=== PATIENT | male | born 1970 | race Caucasian/White ===

== ENCOUNTER 2021-09-12 07:49 | Outpatient (REF) | payer OTHER, SELFPAY ==
[2021-09-12 11:06] LABS: Hematocrit 44.3 % (42-52); Hemoglobin 14.8 g/dl (14.0-18.0); Mean Corpuscular HGB Conc 33.4 g/dl (31.0-36.0); Mean Corpuscular Hemoglobin 30.3 pg (27.0-33.0); Mean Corpuscular Volume 90.8 fL (80-98); Mean Platelet Volume 11.8 fL (9.4-12.4); Platelet Count 189 X10*3/uL (160-400); Red Blood Count 4.88 X10*6/uL (4.60-5.80); Red Cell Distribution Width 12.7 % (11.0-16.0); White Blood Count 7.5 X10*3/uL (4.8-10.8)
[2021-09-12 11:16] LABS: Estimated Average Glucose 117 mg/dL; Hemoglobin A1c % 5.7 %
[2021-09-12 11:52] LABS: Prostate Specific Antigen 1.13 ng/mL (<0.05-4.0)
[2021-09-12 11:56] LABS: Alanine Aminotransferase 26 U/L (0-40); Albumin Level 4.6 g/dL (3.5-5.0); Alkaline Phosphatase 60 U/L (39-117); Anion Gap 12 (12-20); Aspartate Amino Transferase 21 U/L (5-37); Bilirubin Total 0.5 mg/dL (0.0-1.0); Blood Urea Nitrogen 11 mg/dL (9-16); Carbon Dioxide 25 mmol/L (22-29); Chloride 105 mmol/L (96-108); Cholesterol 161 mg/dL; Estimated Glomerular Filt Rate > 60; Glucose Fasting 115 mg/dL (60-99); HDL Cholesterol 45 mg/dL; LDL Cholesterol Calculated 96 mg/dl; Potassium 4.2 mmol/L (3.3-5.1); Sodium 138 mmol/L (135-145); Total Protein 7.1 g/dL (6.5-8.0); Triglycerides 101 mg/dL
== END 2021-09-12 07:50 | disposition home or self-care (01) ==
LOC: HO.MANLDS 07:49
PROVIDERS: PCP Internal Medicine; Visit Provider Internal Medicine
DX: Z12.5 Encounter for screening for malignant neoplasm of prostate (principal); R73.01 Impaired fasting glucose; I10 Essential (primary) hypertension
CPT/HCPCS: 36415; 80053; 80061; 83036; 84153; 85027

== ENCOUNTER 2023-06-10 08:09 | Outpatient (REF) | payer OTHER, SELFPAY ==
[2023-06-10 13:27] LABS: MANUAL DIFF FLAG NO
[2023-06-10 13:52] LABS: Basophils Absolute Auto 0.1 X10*3/uL (0.0-0.2); Basophils Percent Auto 0.8 % (0-2); Eosinophils Absolute Auto 0.1 X10*3/uL (0.0-0.4); Eosinophils Percent Auto 1.8 % (0-4); Hematocrit 45.8 % (42.0-52.0); Hemoglobin 14.9 g/dl (14.0-18.0); Imm Gran Abs Auto 0.04 X10*3/uL (0.00-0.03); Imm Gran Pct Auto 0.6 % (0.0-0.4); Lymphocytes Absolute Auto 1.9 X10*3/uL (1.2-4.9); Mean Corpuscular HGB Conc 32.5 g/dl (31.0-36.0); Mean Corpuscular Hemoglobin 29.6 pg (27.0-33.0); Mean Corpuscular Volume 90.9 fL (80.0-98.0); Mean Platelet Volume 11.5 fL (9.4-12.4); Monocytes Absolute Auto 0.7 X10*3/uL (0.1-1.2); Monocytes Percent Auto 9.3 % (2-11); Neutrophils Absolute Auto 4.5 x10*3/uL (2.0-8.3); Neutrophils Percent Auto 61.5 % (45-73); Platelet Count 187 X10*3/uL (160-400); Red Blood Count 5.04 X10*6/uL (4.60-5.80); Red Cell Distribution Width 12.9 % (11.0-16.0); White Blood Count 7.2 X10*3/uL (4.8-10.8)
[2023-06-10 14:05] LABS: Alanine Aminotransferase 40 U/L (0-40); Albumin Level 4.5 g/dL (3.5-5.0); Alkaline Phosphatase 60 U/L (39-117); Anion Gap 12 (12-20); Aspartate Amino Transferase 25 U/L (5-37); Bilirubin Total 0.6 mg/dL (0.0-1.0); Blood Urea Nitrogen 12 mg/dL (9-16); Calcium 10.1 mg/dL (8.4-10.2); Carbon Dioxide 27 mmol/L (22-29); Chloride 106 mmol/L (96-108); Cholesterol 172 mg/dL; Estimated Glomerular Filt Rate > 60; Glucose Random 104 mg/dL (60-115); HDL Cholesterol 41 mg/dL; LDL Cholesterol Calculated 100 mg/dl; Potassium 4.2 mmol/L (3.3-5.1); Sodium 141 mmol/L (135-145); Total Protein 7.4 g/dL (6.5-8.0); Triglycerides 157 mg/dL
[2023-06-10 14:13] LABS: Estimated Average Glucose 114 mg/dL; Hemoglobin A1c % 5.6 %
[2023-06-10 14:39] LABS: Prostate Specific Antigen 1.21 ng/mL (<0.05-4.0)
== END 2023-06-10 08:10 | disposition home or self-care (01) ==
LOC: HO.MANLDS 08:09
PROVIDERS: Visit Provider Internal Medicine
DX: Z12.5 Encounter for screening for malignant neoplasm of prostate (principal); E78.2 Mixed hyperlipidemia; R73.01 Impaired fasting glucose
CPT/HCPCS: 36415; 80053; 80061; 83036; 84153; 85025

== ENCOUNTER 2025-04-02 09:35 | Outpatient (REF) | payer OTHER, SELFPAY ==
--- OUTSIDE RECORDS SUMMARY | 2025-04-02 09:52 | XMS_ITS | Data Portability ---
Author Organization [facility] Home Service Address [address] [place] [address] Assessment Encounter Date Assessment Date Assessment LastModified by Organization Details LastModified Time 09/19/2022 09/19/2022 [id number] [place] [id number] (I&C TECHNICIAN) [facility] MODERATE MUST MEET 2 OUT OF 3 ELEMENTS: PROBLEMS, DATA OR RISK ELEMENT 1: PROBLEMS ADDRESSED 1 OR MORE CHRONIC ILLNESS WITH EXACERBATION OR 2 OR MORE STABLE CHRONIC ILLNESSES OR 1 UNDIAGNOSED NEW PROBLEM OR 1 ACUTE ILLNESS W/SYMPTOMS OR 1 ACUTE COMPLICATED INJURY ELEMENT 2: DATA MUST MEET 1 OF 3 CATEGORIES CATEGORY 1: REVIEW OF PRIOR EXTERNAL NOTES, REVIEW OF RESULTS, ORDERING OF EACH TEST, ASSESSMENT REQUIRING INDEPENDENT HISTORIAN OR CATEGORY 2: INDEPENDENT INTERPRETATION OF TESTS BY ANOTHER PHYSICIAN OR SPECIALIST OR CATEGORY 3: DISCUSSION OF MGT OR TEST INTERPRETATION W/EXTERNAL PHYSICIAN OR SPECIALIST ELEMENT 3: RISK RISK OF COMPLICATIONS AND/OR MORBIDITY OR MORTALITY OF PATIENT MANAGEMENT PROVIDER MUST THOROUGHLY DOCUMENT EACH ELEMENT THAT IS COVERED Not available 09/19/2022 15:16:19 06/12/2023 06/12/2023 [id number] [place] [id number] (I&C TECHNICIAN) [facility] MODERATE MUST MEET 2 OUT OF 3 ELEMENTS: PROBLEMS, DATA OR RISK ELEMENT 1: PROBLEMS ADDRESSED 1 OR MORE CHRONIC ILLNESS WITH EXACERBATION OR 2 OR MORE STABLE CHRONIC ILLNESSES OR 1 UNDIAGNOSED NEW PROBLEM OR 1 ACUTE ILLNESS W/SYMPTOMS OR 1 ACUTE COMPLICATED INJURY ELEMENT 2: DATA MUST MEET 1 OF 3 CATEGORIES CATEGORY 1: REVIEW OF PRIOR EXTERNAL NOTES, REVIEW OF RESULTS, ORDERING OF EACH TEST, ASSESSMENT REQUIRING INDEPENDENT HISTORIAN OR CATEGORY 2: INDEPENDENT INTERPRETATION OF TESTS BY ANOTHER PHYSICIAN OR SPECIALIST OR CATEGORY 3: DISCUSSION OF MGT OR TEST INTERPRETATION W/EXTERNAL PHYSICIAN OR SPECIALIST ELEMENT 3: RISK RISK OF COMPLICATIONS AND/OR MORBIDITY OR MORTALITY OF PATIENT MANAGEMENT PROVIDER MUST THOROUGHLY DOCUMENT EACH ELEMENT THAT IS COVERED Not available 06/12/2023 14:52:52 06/09/2024 06/09/2024 [id number] [place] [id number] (I&C TECHNICIAN) [facility] MODERATE MUST MEET 2 OUT OF 3 ELEMENTS: PROBLEMS, DATA OR RISK ELEMENT 1: PROBLEMS ADDRESSED 1 OR MORE CHRONIC ILLNESS WITH EXACERBATION OR 2 OR MORE STABLE CHRONIC ILLNESSES OR 1 UNDIAGNOSED NEW PROBLEM OR 1 ACUTE ILLNESS W/SYMPTOMS OR 1 ACUTE COMPLICATED INJURY ELEMENT 2: DATA MUST MEET 1 OF 3 CATEGORIES CATEGORY 1: REVIEW OF PRIOR EXTERNAL NOTES, REVIEW OF RESULTS, ORDERING OF EACH TEST, ASSESSMENT REQUIRING INDEPENDENT HISTORIAN OR CATEGORY 2: INDEPENDENT INTERPRETATION OF TESTS BY ANOTHER PHYSICIAN OR SPECIALIST OR CATEGORY 3: DISCUSSION OF MGT OR TEST INTERPRETATION W/EXTERNAL PHYSICIAN OR SPECIALIST ELEMENT 3: RISK RISK OF COMPLICATIONS AND/OR MORBIDITY OR MORTALITY OF PATIENT MANAGEMENT PROVIDER MUST THOROUGHLY DOCUMENT EACH ELEMENT THAT IS COVERED Not available 06/09/2024 16:11:29 02/23/2025 02/23/2025 [id number] [place] [id number] (I&C TECHNICIAN) [facility] MODERATE MUST MEET 2 OUT OF 3 ELEMENTS: PROBLEMS, DATA OR RISK ELEMENT 1: PROBLEMS ADDRESSED 1 OR MORE CHRONIC ILLNESS WITH EXACERBATION OR 2 OR MORE STABLE CHRONIC ILLNESSES OR 1 UNDIAGNOSED NEW PROBLEM OR 1 ACUTE ILLNESS W/SYMPTOMS OR 1 ACUTE COMPLICATED INJURY ELEMENT 2: DATA MUST MEET 1 OF 3 CATEGORIES CATEGORY 1: REVIEW OF PRIOR EXTERNAL NOTES, REVIEW OF RESULTS, ORDERING OF EACH TEST, ASSESSMENT REQUIRING INDEPENDENT HISTORIAN OR CATEGORY 2: INDEPENDENT INTERPRETATION OF TESTS BY ANOTHER PHYSICIAN OR SPECIALIST OR CATEGORY 3: DISCUSSION OF MGT OR TEST INTERPRETATION W/EXTERNAL PHYSICIAN OR SPECIALIST ELEMENT 3: RISK RISK OF COMPLICATIONS AND/OR MORBIDITY OR MORTALITY OF PATIENT MANAGEMENT PROVIDER MUST THOROUGHLY DOCUMENT EACH ELEMENT THAT IS COVERED Not available 02/23/2025 15:05:40 Plan of Treatment Reminders Order Date Submit Date Provider Last Modified By Organization Details Last Modified Time Details Appointments FOLLOW UP 15 2024 02:45P M DR HENDRICKSON Not available Not available Not available Lab lipid panel, blood 2024 025 [facility], [address] [place] [address], [place], [address], 02/23/2025 15:08:12 CMP, serum or plasma 2024 025 [facility], [address] [place] [address], [id number], 02/23/2025 15:08:12 CBC 2024 025 [facility], [address] [place] [address], [id number], 02/23/2025 15:08:12 PSA, serum or plasma 2024 025 [facility], [address] [place] [address], [address], 02/23/2025 15:08:12 HbA1c (hemoglob in A1c), blood 2021 022 [facility] Not available 06/11/2023 11:31:23 lipid panel, blood 2021 022 [facility], [address] [place] [address], [id number], 09/19/2022 15:25:20 CMP, serum or plasma 2021 022 [facility], [address] [place] [address], [id number], 09/19/2022 15:25:21 PSA, serum or plasma 2021 022 [facility], [address] [place] [address], [address], 09/19/2022 15:25:20 CBC 2021 022 [facility], [address] [place] [address], [address], 09/19/2022 15:25:21 Referral gastroent erologist referral 2023 024 [facility], [address] [place], [address], 07/07/2024 08:26:59 Procedures None recorded. Surgeries None recorded. Imaging XR, lumbosacr al spine, 2 or 3 view 2023 024 [facility], [address] [place] [address], [id number], 06/23/2024 08:23:07 XR, hip, unilatera l, 2 or 3 view - right hip 2023 024 [facility], [address] [place] [address], [address], 06/23/2024 08:21:36 US, testicle 2021 022 [email or web address], [address] [place] [address], [id number], 07/16/2022 08:16:05 Medication Orders prednison e 10 mg tablet 2023 024 [email or web address] Not available 02/23/2025 14:50:26 tramadol 50 mg tablet 2022 023 Not available 02/23/2025 15:10:23 pregabali n 75 mg capsule 2022 023 Not available 02/23/2025 15:10:33 Bactrim DS 800 mg-160 mg tablet 2021 022 Not available 09/19/2022 14:40:50 Patient TargetsNo targets recorded. Patient Instructions Encounter Date Encounter Id Patient Instructions Last Modified By Organization Details Last Modified Time 06/09/2024 [id number] abdominal pain: care instructions Not available 06/09/2024 16:07:28 Reason for Referral [employer] Referral for Left lower quadrant pain Referring Physician: Gregorio Hendrickson, Internal Medicine, Encounter Date: 06/09/2024 Results Created Date Observation Date Name Description Value Unit Range Abnormal Flag Note LastModifiedBy Organization Detail LastModifiedTime 07/25/20 22 07/25/2022 US, testi trevor No observ ation record ed. [email or web address] [facility] Radiology (Mammo) [address] [place] [address], [id number], 07/27/2022 10:45:34 Result Notes None recorded. Problems Name Problem SNOMED Code Status Onset Date Resolution Date Notes Provider Name and Address Organization Details Recorded Time Paronychi a of finger of left hand 621371558045 44680 Active 2019 Gregorio Hendrickson DO [address] [place] [address], [address], [facility] 0 15:10:55 Lumbar radiculop athy 220678576 Active 2020 Gregorio Hendrickson DO [address] [place] [address], [address], [facility] 1 12:46:04 COVID-19 462340917 Active 2020 [facility] 1 10:48:20 Pain of left testicle 609027008846 37443 Active 2021 KWESI MCCOY [address] [place] [address], [address], [facility] 2 14:22:30 Epididymi tis 61375531 Active 2021 KWESI MCCOY [address] [place] [address], [address], [facility] 2 14:22:52 Spermatoc nan 73387895 Active 2021 KWESI MCCOY [address] [place] [address], [address], [facility] 2 10:46:09 Left lower quadrant pain 907987976 Active 2023 Gregorio Hendrickson DO [address] [place] [address], [address], [facility] 4 16:05:42 Pain of right hip joint 765922190570 102 Active 2023 Gregorio Hendrickson DO [address] [place] [address], [address], [facility] 4 16:12:21 Essential hypertens ion 03312043 Active 2017 [facility] 8 08:18:47 Hypertrig lyceridem ia 409963649 Active 2017 [facility] 8 08:18:58 Allergic rhinitis 93341527 Active 2017 [facility] 8 08:19:06 Impaired fasting glycemia 810657563 Active 2017 [facility] 8 08:19:18 Restless legs 97809166 Active 2017 [facility] 8 08:19:36 Gastroeso phageal reflux disease 526924221 Active 2017 [facility] 8 08:19:43 Hiatal hernia 08175148 Active 2017 [facility] 8 08:19:50 Problem Notes None recorded. Procedures Surgical History Date Name Laterality Status Provider Name and Address Organization Details Recorded Time 025 Colonoscopy completed Heaven Nevarez [facility] 02/09/2025 09:58:51 Carpal tunnel surgery completed Charlotte Mike NP, [address] [place] [address], [phone], [facility] 05/27/2018 13:29:50 Tonsillectomy completed Charlotte correa NP, [address] [place], [address], [facility] 05/27/2018 13:32:23 Imaging Results Imaging Date Name Status LastModified by Organiz ation Details LastModified Time 07/25/2022 US, testicle [facility] Rad[facility] (Mammo[facility] [address] [place], [address], 07/27/2022 10:45:34 Procedure Notes None recorded. Medical Equipment None Reported. Allergies No known drug allergies Medications Name Sig Start Date Stop Date Status Note LastModified by Organization Details LastModified Time Augmentin 875 mg-125 mg tablet Take 1 tablet every 12 hours by oral route with meals for 14 days. 11/19 completed Not Available Not Available Not Available prednisone 10 mg tablet TAKE 4 TABS X 3 DAYSTAKE 3 TABS X 3 DAYS TAKE 2 TABS X 3 DAYSTAKE 1 TAB X 3 DAYS 02/23 completed Not Available Not Available Not Available trazodone 50 mg tablet take 1 tablet by mouth at bedtime 08/18 completed Not Available Not Available Not Available ofloxacin 0.3 % eye drops 12/22 completed Not Available Not Available Not Available sucralfate 1 gram tablet TAKE 1 TABLET BY MOUTH THREE TIMES DAILY WITH MEALS 02/23 completed Not Available Not Available Not Available lisinopril 20 mg tablet TAKE 1 TABLET BY MOUTH DAILY 2024 active Not Available Not Available Not Avai lable Medrol (Ander) 4 mg tablets in a dose pack 24 mg PO on day 1, then decr. by 4 mg/day x5 days per dose pack instructi ons 11/28 completed Not Available Not Available Not Available prednisone 20 mg tablet 3 tabs X 3 days , 2 tabs x 3 days, 1 tab X 3 days 06/17 completed Not Available Not Available Not Available moxifloxaci n 400 mg tablet Take 1 tablet every day by oral route for 10 days. 05/27 completed Not Available Not Available Not Available Zithromax Z-Ander 250 mg tablet TAKE 2 TABLETS (500 MG) BY ORAL ROUTE ONCE DAILY FOR 1 DAY THEN 1 TABLET (250 MG) BY ORAL ROUTE ONCE DAILY FOR 4 DAYS 11/28 completed Not Available Not Available Not Available sulfamethox azole 800 mg-trimetho prim 160 mg tablet TAKE 1 TABLET BY MOUTH EVERY 12 HOURS FOR 7 DAYS 09/19 completed Not Available Not Available Not Available omeprazole 40 mg capsule,del ayed release TAKE 1 CAPSULE BY MOUTH TWICE DAILY needs appt for further refills. call office 2024 active Not Available Not Available Not Avai lable tramadol 50 mg tablet TAKE 1 TABLET BY MOUTH EVERY 6 HOURS NEEDED 02/23 completed Not Available Not Available Not Available pramipexole 0.5 mg tablet TAKE 1 TABLET BY MOUTH THREE TIMES DAILY 2024 active Not Available Not Available Not Avai lable trazodone 100 mg tablet TAKE 1 TABLET BY MOUTH EVERY DAY AT BEDTIME 2024 active Not Available Not Available Not Avai lable cephalexin 500 mg capsule Take 1 capsule 3 times a day by oral route for 10 days. 03/27 completed Not Available Not Available Not Available epinephrine 0.3 mg/0.3 mL injection, auto-inject or active Not Available Not Available Not Available ropinirole 5 mg tablet TAKE 1 TABLET BY MOUTH EVERY DAY 09/13 completed Not Available Not Available Not Available ondansetron 4 mg disintegrat ing tablet 02/23 completed Not Available Not Available Not Available ropinirole 4 mg tablet take 1 tablet by mouth once daily 05/27 completed Not Available Not Available Not Available oxycodone 5 mg tablet 05/27 completed Not Available Not Available Not Available rosuvastati n 10 mg tablet TAKE 1 TABLET BY MOUTH EVERY DAY 2024 active Not Available Not Available Not Avai lable pregabalin 75 mg capsule TAKE 1 CAPSULE BY MOUTH TWICE DAILY 02/23 completed Not Available Not Available Not Available Flonase Ramah in each nostril once a day 05/27 completed Not Available Not Available Not Available Mucinex 03/23 completed Not Available Not Available Not Available ProAir HFA 90 mcg/actuati on aerosol inhaler Inhale 2 puffs every 4 hours by inhalatio n route. 02/23 completed PRN Not Available Not Available Not Available sodium,pota ssium,mag sulfates 17.5 gram-3.13 gram-1.6 gram oral soln TAKE 177 ML BY MOUTH 1 TIME SPLIT PREP active Not Available Not Available No t Available Plenvu 140 gram-9 gram-5.2 gram powder packs 05/27 completed Not Available Not Available Not Available Wixela Inhub 250 mcg-50 mcg/dose powder for inhalation Inhale 1 puff twice a day by inhalatio n route. 05/27 completed Not Available Not Available Not Available BinaxNOW COVID-19 Ag Self Test kit TEST DIRECTED TODAY active Not Available Not Available No t Available Vitals Date Recorded Body height Oxygen saturation Oxygen saturation in Arterial blood by Pulse oximetry Heart rate Systolic blood pressure Diastolic blood pressure Provider Name and Address Organization Details Last Updated DateTime 2 165.1 cm 98 % 98 % 71 /min 170 mm[Hg] 84 mm[Hg] Alondra Pizarro [facility] 2 14:15:41 Date Recorded Body height Body mass index (BMI) Body weight Heart rate Oxygen saturation Oxygen saturation in Arterial blood by Pulse oximetry Systolic blood pressure Diastolic blood pressure Provider Name and Address Organization Details Last Updated DateTime 2 165.1 cm 26.7 kg/m2 38292.9 3 g 68 /min 98 % 98 % 148 mm[Hg] 80 mm[Hg] Gregorio Hendrickson, DO [address] [place], [address] 2 14:41:37 Date Recorded Body height Body mass index (BMI) Body weight Heart rate Oxygen saturation Oxygen saturation in Arterial blood by Pulse oximetry Systolic blood pressure Diastolic blood pressure Provider Name and Address Organization Details Last Updated DateTime 3 165.1 cm 26.6 kg/m2 00446.7 8 g 73 /min 97 % 97 % 142 mm[Hg] 80 mm[Hg] Rylie Stephens [facility] 3 14:19:44 Date Recorded Body height Body mass index (BMI) Body weight Heart rate Oxygen saturation Oxygen saturation in Arterial blood by Pulse oximetry Systolic blood pressure Diastolic blood pressure Provider Name and Address Organization Details Last Updated DateTime 4 165.1 cm 25.8 kg/m2 07552.8 2 g 83 /min 97 % 97 % 139 mm[Hg] 80 mm[Hg] Rylie Stephens [facility] 4 15:34:00 Date Recorded Body height Body mass index (BMI) Body weight Heart rate Oxygen saturation Oxygen saturation in Arterial blood by Pulse oximetry Systolic blood pressure Diastolic blood pressure Provider Name and Address Organization Details Last Updated DateTime 5 165.1 cm 25.8 kg/m2 27151.8 2 g 83 /min 97 % 97 % 120 mm[Hg] 68 mm[Hg] Rylie Stephens [facility] Medicine 5 14:51:47 Social History Question Answer Notes LastModified by Organizat ion Details LastModified Time Tobacco Smoking Status Never Smoker Not Available [facility] 09/[facility]/2020 03:36:23 What Was The Date Of Your Most Recent Tobacco Screening? 06/09/2024 [email or web address] Information not available 06/09/2024 Sex: Unknown Functional Status Question Answer Note LastModified by Organization D etails LastModified Time Do you or have you ever used any other forms of tobacco or nicotine? No Information not available 09/19/2022 Mental Status None recorded. Family History Nothing Reported. Medical History No medical history recorded. Past Encounters Encounter ID Performer Location Encounter Start Date Encounter Closed Date Diagnosis/Indication Diagnosis SNOMED-CT Code Diagnosis ICD10 Code Diagnosis Note [id number] Gregorio Hendrickson [facility] Internal Medicine [address] [facility], [place] [address] 05/27/2018 13:36:54 05/27/2018 14:49:07 Injury of ankle 546142550 S99.912A rest, ice, wrap Essential hypertension 27218175 I10 stable, follow Hypercholesterolemia 136 93008 E78.00 check labs Gastroesop hageal reflux disease 295697766 K21.9 try BID dosing X 1 week [id number] Gregorio Hendrickson DO [facility] Internal Medicine [address] [facility], [place] [address] 08/18/2018 14:46:23 08/18/2018 15:32:37 Essential hypertension 86323898 I10 stable on lisinopril Impaired f asting glycemia 681683517 R73.01 fbw is 120 so will have to check a1c test as last time Hypertriglyceridemia 302 215453 E78.2 cholestero l superb Renewal of prescription 122558996 Z76.0 will increase the trazodone to 100mg Acute sinusitis 50027742 J01.90 [id number] Gregorio Hendrickson [facility] Internal Medicine [address] [facility], [place] [address] 11/19/2018 15:36:45 11/21/2018 08:32:18 Cough 18729192 R05 treatment as below mucinex - dm for sx control Gastroesop hageal reflux disease 553354614 K21.9 in setting of HH on omeprazole daily Essential hypertension 65523953 I10 mildly elevated today avoid sudafed Allergic rhinitis 406116 04 J30.9 flonase as needed Reactive a irway disease 9004952221 06 J45.909 h/o asthma exacerbate d by colds Otitis media 80943811 H6 6.93 just had augmentin in 08/2018, will try zpack [id number] Gregorio Hendrickson [facility] Internal Medicine [address] [facility] [address] [address] 11/28/2018 11:02:00 11/28/2018 11:41:42 Cough 10962972 R05 improved Gastroesop hageal reflux disease 289213313 K21.9 in setting of HH on omeprazole daily Essential hypertension 23895292 I10 better today Allergic rhinitis 321860 04 J30.9 encourage use of flonase and mucinex for nasal drainage Otitis media 86648877 H6 6.93 EARS continue to be erythemato us and fluid filled after augmentin and azithro, do not favor bacterial will trial prednisone and ENT referral if pred fails Gregorio Hendrickson [facility] Internal Medicine [address] [facility] [address],[place] [address] 03/23/2019 10:18:48 03/23/2019 13:54:09 Acute asthma 526601955 J45.901 Essential hypertension 11803956 I10 stable, follow Allergic rhinitis 887667 04 J30.2 Gregorio Hendrickson [facility] Internal Medicine [address] [facility] [address],[place] [address] 03/31/2019 14:00:45 03/31/2019 14:42:25 Asthma 544707094 J45.909 [id number] Gregorio Hendrickson [facility] Internal Medicine [address] [facility] [address] [address] 06/17/2019 13:39:57 06/17/2019 14:14:28 Essential hypertension 34888036 I10 stable on lisinopril Impaired f asting glycemia 497090975 R73.01 fbw is 120 so will have to check a1c test as last time Allergic rhinitis 861196 04 J30.9 will cont to have him tx with allerg Paronychia of finger 444 862132 L03.019 epsom salt soaks and abx if no improvenmt will have hand dr steven [id number] Gregorio Hendrickson, [facility] Internal Medicine [address] [facility], [place] [address] 12/22/2019 13:25:30 12/22/2019 14:10:07 Essential hypertension 02597877 I10 stable on lisinopril Impaired f asting glycemia 288852143 R73.01 fbw is 120 so will have to check a1c Hypertriglyceridemia 302 030660 E78.2 Will recheck chol Chronic diarrhea 7814959 09 K52.9 Has been ongoing, family history Rec probiotic and increased fiber intake Restless legs 51622961 G 25.81 Having some restlessne ss before taking ropinirole and possibly some GI upset Increase ropinirole dose Paronychia of finger 444 882204 L03.019 No improvemen t with abx and soaking Will get XR to rule out osteo and cover gram negs with moxi [id number] Gregorio Hendrickson, [facility] Internal Medicine [address] [facility], [place] [address] 01/12/2020 14:36:42 01/12/2020 15:31:54 Essential hypertension 81281345 I10 stable on lisinopril Impaired f asting glycemia 617008819 R73.01 fbw is 120 so will have to check a1c next visit Restless legs 60722602 G 25.81 states seems to be doing ok with the ropinirole Paronychia of finger of left hand 1989071157 9592147 L03.012 given chronicity will refer to hand [id number] Gregorio Hendrickson [facility] Internal Medicine [address] [facility], [employer] [address] 05/27/2020 10:43:08 05/27/2020 11:39:22 Hypertriglyceridemia 477028394 E78.2 Will recheck chol Essential hypertension 07822735 I10 stable on lisinopril Impaired f asting glycemia 494190676 R73.01 fbw is 120 so will have to check a1c next visit Paronychia of finger of left hand 0130493726 9504929 L03.012 seems improved!! ! we will hit jn with abx Paronychia of finger 444 588340 L03.019 No improvemen t with abx and soaking Will get XR to rule out osteo and cover gram negs with moxi Pain of ri ght hip joint 6455420392 58099 M25.551 [id number] Gregorio Hendrickson [facility] Internal Medicine [address] [facility],[place] [address] 03/27/2021 11:28:21 03/27/2021 14:01:48 Gastroesophageal reflux disease 944316028 K21.9 doing ok overall no major issues with omeprazole 40mg Impaired f asting glycemia 155498628 R73.01 fbw is 120 so will have to check a1c next visit Essential hypertension 67011878 I10 stable on lisinopril Restless legs 94210304 G 25.81 states seems to be not as controlled we [place]ipe[place] e [id number] Gregorio Hendrickson [facility] Internal Medicine [address] [facility], [employer] [facility] [place] 7 09/13/2021 11:46:16 09/13/2021 14:36:15 Essential hypertension 06597092 I10 stable on lisinopril Impaired f asting glycemia 860382335 R73.01 fbw is 120 so will have to check a1c next visit Hypertriglyceridemia 302 331593 E78.2 Will recheck chol Lumbar radiculopathy 128 118700 M54.16 having episode osf severe pain a and so when he does we will try the tramadol Restless legs 07678611 G 25.81 is doing well with pramipexol eand is doing good cont at .5 dose [id number] Gregorio Hendrickson [facility] Internal Medicine [address] [facility] [address],[place] [facility] [address] 03/21/2022 13:27:40 03/21/2022 15:25:37 Essential hypertension 26133043 I10 stable on lisinopril Gastroesop hageal reflux disease 963396575 K21.9 doing ok overall no major issues with omeprazole 40mg Impaired f asting glycemia 897775915 R73.01 fbw is 120 so will have to check a1c next visit Lumbar radiculopathy 128 438330 M54.16 having episode osf severe pain a and so when he does we will try the tramadol and i encouraged him to do so Restless legs 50604647 G 25.81 is doing well with pramipexol eand is doing good cont at .5 dose [id number] EZEQUIEL MILLER [facility] Internal Medicine [address] [facility] [address] [address] 07/09/2022 14:09:12 07/09/2022 14:39:29 Pain of left testicle [id number] N50.812 fu with US testicle Epididymitis 04696371 N4 5.1 start on bactrim in the meantime [id number] Gregorio Hendrickson [facility] Internal Medicine [address] [facility] on [place] [address] 09/19/2022 14:13:41 09/19/2022 16:23:04 Impaired fasting glycemia [id number] R73.01 fbw is 120 so will have to check a1c next visit Essential hypertension 50860386 I10 stable on lisinopril Gastroesop hageal reflux disease 447310383 K21.9 doing ok overall no major issues with omeprazole 40mg Hypertriglyceridemia 302 097998 E78.2 Will recheck chol Screening for malignant neoplasm of colon 258721669 Z12.11 will need to eval Active or passive immunization [id number] Z23 patient advised he is due for tdap Restless legs 71679667 G 25.81 is doing well with pramipexol eand is doing good cont at .5 dose tid [id number] Gregorio Hendrickson DO [facility] Internal Medicine [address] [facility] on [place] [address] 06/12/2023 14:13:01 06/12/2023 15:07:04 Essential hypertension 97665730 I10 stable on lisinopril Gastroesop hageal reflux disease 026617938 K21.9 doing ok overall no major issues with omeprazole 40mg Hypertriglyceridemia 302 872728 E78.2 Will recheck chol Impaired f asting glycemia 493948292 R73.01 a1c is no 5.6 Lumbar radiculopathy 128 533236 M54.16 having episode osf severe pain a and so when he does we will try the tramadol and i encouraged him to do so and we will have him start the lyrica Pain of left testicle 16 [id number] 6569135 N50.812 had a small irritated spermatoce le and was told by urol no issues [id number] Gregorio Hendrickson [facility] Internal Medicine [address] [facility],[place] [address] 06/09/2024 15:27:48 06/10/2024 09:16:49 Left lower quadrant pain 258479407 R10.32 Lumbar radiculopathy 128 599941 M54.16 pain is now radiating down his right leg all the way to foot Pain of ri ght hip joint [id number] 69327 M25.551 [id number] Gregorio Hendrickson [facility] Internal Medicine [address] [facility],[place] [address] 02/23/2025 14:37:23 02/23/2025 15:43:36 Essential hypertension 08509280 I10 stable on lisinopril 20 Hypertriglyceridemia 302 322212 E78.2 Will recheck chol Lumbar radiculopathy 128 251968 M54.16 back pain is better the stabbing pain is better but now the neck has been a pain Depression screening 171 399099 Z13.31 neg Health Concerns Section Related Observation LastModified by Organization Detai ls LastModified Time None Recorded Concern Status LastModified by Organization Details LastModified Time None Recorded Advance Directives Directive None Recorded Payers Encounter Date Sequence Insurance Name Policy Number Policy Chiu Covered Member ID Chiu Member ID Guarantor Name 07/09/[address] [place] [address] [id number] Sloan Fonseca [id number] Sloan Fonseca 09/19/[address] [place] [address] [id number] Sloan Fonseca [id number] Sloan Villanueva Marian 06/12/2023 1 [facility] [id number] Sloan Marian [id number] Sloan Villanueva Marian 06/09/2024 1 [facility] [id number] Sloan Marian [id number] Sloan Villanueva Marian 02/23/2025 1 [facility] [id number] Sloan Hortabodeau [id number] Sloan Villanueva Marian Notes Date Note Type Note Provider Name and Address Organization Details Recorded Time 07/09/20 text/htm l c/o left testicular pain the patient has had a chronic varicose vein in his left testicularnoted over the last week his left testicle has been tenderno discharge, no urinary changes, no pain with intercourse, no blood in his urine or semen, no nausea, no abd pain the patient left testicle is lower than his right, mild redness, tenderness to palpation, no warmth possible epididymitis, will start on bactrimwould like him to fu with a US testicular exam to r/o other possible internal causes ie varicocele, hydrocele, possible hernia KWESI MCCOY [address] [place], [address], [facility] Internal Medicine 07/09/2022 14:34:21 09/19/20 text/htm l here for rechk and seen by urologisthe is feeling pretty good otherwisestill has the fatigue when getting home still has mental fogginess at timesalso his bp is elevated at times now too Gregorio Hendrickson DO [address] [facility], [place], [address], [facility] Internal Medicine 09/19/2022 15:22:26 06/12/20 text/htm l Care Management - HypertensionReported bypatient.Prognosis:expect ed outcome: stabilize; prognosis: good Self Care:not under emotional stress Severity:symptoms are improving; does not interfere with daily activities Associated Symptoms:no dizziness; no lightheadedness; no chest pain; no shortness of breath; no palpitations; no edema; no calf muscle cramps; no blurred vision; no confusion; no headaches; no fatigue here for rechk and is doing ok except for his low backhas been struggling with his low back has been trying to get by discussed the use of other meds like lyrica Gregorio Hendrickson, [address] [place], [address], [facility] Internal Medicine 06/12/2023 14:58:41 06/09/20 24 text/htm l ER note reviewed had simultaneous LLQ abd pain as well as a pounding occipital headache relates that w/u was negativehad CT of head and abd/pelvisrelates it occurs when he sits to urinatestates will come and go no pattern no fevers no chillshad broken out in a sweat Gregorio Hendrickson DO [address] [place], [address], [facility] Medicine 06/09/2024 16:14:43 02/24/20 25 text/htm l Back PainReported bypatient.Location:pain is not radiating Severity:improving Associated Symptoms:no fever; no weak limbs; no numbness of the legs/feet; no tingling; no incontinence; no shortness of breath; no unintentional weight loss; no chills; no night sweats; no gait instability; no bowel/bladder symptoms; no recent increase in stress Previous Injury:no prior injury to back; no prior malignancyCare Management - HyperlipidemiaReported bypatient.Control:usually well controlled; improving; at goal Complications:no coronary artery disease; no heart attack; no cardiovascular disease; no pancreatitis; no strokeCare Management - HypertensionReported bypatient.Self Care:not under emotional stress Severity:symptoms are improving; does not interfere with daily activities Associated Symptoms:no dizziness; no lightheadedness; no chest pain; no shortness of breath; no palpitations; no edema; no calf muscle cramps; no blurred vision; no confusion; no headaches; no fatigue here for rechkdid not get xr last time orderedcolonoscopy was good one hyperplastic polyp Gregorio Hendrickson DO [address] [place], [address], [facility] Internal Medicine 02/23/2025 15:21:37
[2025-04-02 13:10] LABS: MANUAL DIFF FLAG NO
[2025-04-02 13:16] LABS: Basophils Absolute Auto 0.1 X10*3/uL (0.0-0.2); Eosinophils Absolute Auto 0.2 X10*3/uL (0.0-0.4); Eosinophils Percent Auto 3.3 % (0-4); Hematocrit 41.8 % (42.0-52.0); Hemoglobin 13.8 g/dl (14.0-18.0); Imm Gran Abs Auto 0.02 X10*3/uL (0.00-0.03); Imm Gran Pct Auto 0.3 % (0.0-0.4); Lymphocytes Absolute Auto 1.8 X10*3/uL (1.2-4.9); Lymphocytes Percent Auto 25.9 % (20-40); Mean Corpuscular Volume 90.9 fL (80.0-98.0); Mean Platelet Volume 11.2 fL (9.4-12.4); Monocytes Absolute Auto 0.6 X10*3/uL (0.1-1.2); Monocytes Percent Auto 9.3 % (2-11); Neutrophils Absolute Auto 4.2 x10*3/uL (2.0-8.3); Neutrophils Percent Auto 60.2 % (45-73); Platelet Count 201 X10*3/uL (160-400); Red Cell Distribution Width 12.8 % (11.0-16.0); White Blood Count 6.9 X10*3/uL (4.8-10.8)
[2025-04-02 14:00] LABS: Alanine Aminotransferase 46 U/L (0-40); Albumin Level 4.3 g/dL (3.5-5.0); Alkaline Phosphatase 53 U/L (39-117); Anion Gap 11 (12-20); Aspartate Amino Transferase 32 U/L (5-37); Bilirubin Total 0.5 mg/dL (0.0-1.0); Blood Urea Nitrogen 14 mg/dL (9-16); Calcium 9.7 mg/dL (8.4-10.2); Carbon Dioxide 24 mmol/L (22-29); Chloride 106 mmol/L (96-108); Cholesterol 159 mg/dL (<200); Estimated Glomerular Filt Rate > 60; Glucose Random 111 mg/dL (60-115); HDL Cholesterol 41 mg/dL (>40); LDL Cholesterol Calculated 99 mg/dL (<100); Potassium 4.2 mmol/L (3.3-5.1); Sodium 137 mmol/L (135-145); Total Protein 6.9 g/dL (6.5-8.0); Triglycerides 99 mg/dL (<150)
[2025-04-02 14:03] LABS: Prostate Specific Antigen 2.31 ng/mL (<0.05-4.0)
== END 2025-04-02 09:36 | disposition home or self-care (01) ==
LOC: HO.MANLDS 09:35
PROVIDERS: Visit Provider Internal Medicine
DX: Z12.5 Encounter for screening for malignant neoplasm of prostate (principal); I10 Essential (primary) hypertension; E78.2 Mixed hyperlipidemia
CPT/HCPCS: 36415; 80053; 80061; 84153; 85025